=== PATIENT | male | born 1975 | race Caucasian/White ===

== ENCOUNTER 2024-09-07 10:27 | Emergency (ER) | payer MEDICARE, MEDICAID ==
[~2024-09-07] VITALS: Ht 180.3 cm; Wt 104.5 kg
--- NOTE | 2024-09-07 10:53 | ELECTROCARDIOGRAPH REPORT ---
[facility] Test Date: 2024-09-07 Test Time: 10:29:52 Pat Name: DOREEN CORDOVA Department: EMERGENCY ROOM Room: Gender: M Passenger Representative: KEVIN : 1975 Requested By: KAELYN DECKER Order Number: [id number] Reading MD: Measurements Intervals [place] Rate: 72 P: 39 ME: 152 QRS: 16 QRSD: 100 T: 59 QT: 376 QTc: 412 Interpretive Statements Sinus rhythm Please click the below link to view image of tracing.
[2024-09-07 11:15] LABS: BASOPHILS % (AUTO) 0.5 % (0-1); EOSINOPHILS # (AUTO) 0.1 X10'3 (0-0.9); EOSINOPHILS % (AUTO) 1.7 % (0-6); HEMATOCRIT 44.2 % (42.0-52.0); HEMOGLOBIN 14.7 g/dl (14.0-17.9); LYMPHOCYTES % (AUTO) 27.2 % (21-51); MEAN CORPUSCULAR HEMOGLOBIN 28.4 PG (27.0-31.0); MEAN CORPUSCULAR HGB CONC 33.2 g/dL (33.0-36.5); MEAN CORPUSCULAR VOLUME 85.3 FL (78-98); MEAN PLATELET VOLUME 9.4 FL (7.4-10.4); MONOCYTES # (AUTO) 0.7 X10'3 (0-0.9); MONOCYTES % (AUTO) 8.8 % (2-12); NEUTROPHILS # (AUTO) 4.6 X10'3 (1.8-7.7); NEUTROPHILS % (AUTO) 61.8 % (42-75); PLATELET COUNT 174 X10'3 (140-440); RED BLOOD COUNT 5.19 X10'6 (4.70-6.10); RED CELL DISTRIBUTION WIDTH 14.8 % (11.5-14.5); WHITE BLOOD COUNT 7.4 X10'3 (4.5-11.0)
[2024-09-07 11:26] VITALS: BP 124/87; PULSE 79; RESP 17; O2SAT 99
--- NOTE | 2024-09-07 11:36 | Physician Documentation ---
History of Present Illness ~ Chief Complaint: Chest Pain Stated Complaint: L ARM NUMBNESS/CP Time Seen by MD: 11:34 HPI 48-year-old male history of former tobacco use disorder, hyperlipidemia, chronic pain presenting for chest pain. About 1 hour prior to arrival he developed chest pain shortness of breath. His chest pain was substernal radiating to his left arm down his left arm and into his neck. And alleviated shortly after. He has had this happened to him multiple times in the past in the usually go away with rest. He has not seen a physician about this but does report being seen a few weeks [facility] where [facility] had cardiac ultrasound. Medication Reconciliation Allergies: Coded Allergies: No Known Allergies (Unverified , 09/07/24) Review of Systems Respiratory: Reports: shortness of breath Gastrointestinal: Denies: abdominal pain Physical Exam Vital Signs: RN Vital Signs have been reviewed: Yes, Temperature: 97.8, Source: Temporal, Heart Rate: 79, Respiratory Rate: 17, BP: 124/87, Pulse Oximetry: 99, Weight: 104.450 Oxygen Flow Rate: 0 General Appearance Well-appearing no distress resting comfortably in bed No JVD Moist mucous membranes Pulmonary clear to auscultation bilaterally Cardiac no murmur Abdomen is soft nontender Lower extremity no edema Awake alert oriented Progress Progress Note Patient does not want to stay in the ED to wait for his results. He did not even want to stay for his discharge paperwork. I was able to convince him to leave a repeat troponin. He agrees that he will call his primary care physician in the next 24 hours and that he will return if he has any reoccurrence of his symptoms. His reason for not staying is due to multiple children at home as well as his sick mother who was admitted to the hospital. I strongly encouraged him to stay in advised him that we have not even seen his 1st troponin and that his symptoms are concerning for acute coronary syndrome. He understands my concern and is agreeable to follow up. Results/Orders Results/Orders Orders - KAELYN DECKER MD Chest,Single View (09/07/24 10:52) Monitor (09/07/24 10:52) Saline Lock (09/07/24 10:52) Oxygen (09/07/24 10:52) Completed Orders - KAELYN DECKER MD Chest,Single View (09/07/24 10:52) Cbc/Diff (09/07/24 10:52) BMP (09/07/24 10:52) PBNP (09/07/24 10:52) Electrocardiogram (09/07/24 10:52) Hs Troponin I W Calculations (09/07/24 10:52) Hs Troponin I W Calculations (09/07/24 11:51) Vital Signs 09/07/24 09/07/24 09/07/24 09/07/24 10:42 11:21 11:26 11:56 Temp 97.8 97.8 97.8 Pulse 76 79 Resp 18 17 B/P (MAP) 165/117 124/87 (99) Pulse Ox 96 99 O2 Flow Rate 0 Laboratory Tests Test 09/07/24 10:33 09/07/24 11:51 White Blood Count 7.4 Red Blood Count 5.19 Hemoglobin 14.7 Hematocrit 44.2 Mean Corpuscular Volume 85.3 Mean Corpuscular Hemoglobin 28.4 Mean Corpuscular Hemoglobin Concent 33.2 Red Cell Distribution Width 14.8 H Platelet Count 174 Mean Platelet Volume 9.4 Neutrophils (%) (Auto) 61.8 Lymphocytes (%) (Auto) 27.2 Monocytes (%) (Auto) 8.8 Eosinophils (%) (Auto) 1.7 Basophils (%) (Auto) 0.5 Neutrophils # (Auto) 4.6 Lymphocytes # (Auto) 2.0 Monocytes # (Auto) 0.7 Eosinophils # (Auto) 0.1 Basophils # (Auto) 0.0 CBC Comment Sodium Level 142 Potassium Level 4.0 Chloride Level 106 Carbon Dioxide Level 27.3 Anion Gap 9 Blood Urea Nitrogen 16 Creatinine 0.88 Estimated GFR/1.73 m2 > 90 BUN/Creatinine Ratio 18.2 Glucose Level 98 Calcium Level 8.7 Troponin I High Sensitivity 5 5 Pro-B-Type Natriuretic Peptide 38 Albumin 3.9 Chemistry Comments Troponin I High Sens Percent Delta 0 Troponin I Hi Sens Absolute Change 0 EKG/XRAY/CT/US/VASC/MRI EKG : Additional Comment EKG independently interpreted by myself time 10:29 a.m. indication chest pain Normal sinus rhythm rate 72 normal axis normal intervals no ST or T-wave abnormalities Chest X-Ray : Additional Comments Chest x-ray independently interpreted by myse no cardiomegaly no pneumothorax normal cardiomediastinal silhouette Heart Score: Heart Score Response (Comments) Value History Moderate Suspicious 1 EKG Normal 0 Age 45-64 1 Risk Factors 1 or 2 risk factors 1 Troponin Normal limit 0 Total 3 Medical Decision Making Additional Information Acute coronary syndrome, pulmonary embolism, pneumonia Departure Disposition: LEFT AGAINST MEDICAL ADVICE Impression: Primary Impression: Chest pain Qualified Codes: R07.9 - Chest pain, unspecified Additional Impression Text Patient presents with moderate risk chest pain. He left before even his initial troponin was resulted. He would not stay for any discharge paperwork but I did personally discuss his risk of leaving against medical advice and advised him to follow up as soon as possible with his primary care physician for a cardiac stress test Referrals: NO PRIMARY CARE PROVIDER (PCP) Signature Scribe Signature: demetrio Attestation: KAELYN Wilkerson MD Sep 07, 2024 11:36
[2024-09-07 11:42] LABS: ALBUMIN 3.9 G/DL (3.4-5.0); ANION GAP 9 (8-16); BLOOD UREA NITROGEN 16 MG/DL (7-18); BUN/CREATININE RATIO 18.2 (10.0-20.0); CALCIUM 8.7 MG/DL (8.5-10.1); CHLORIDE 106 MMOL/L (99-107); CREATININE 0.88 MG/DL (0.60-1.10); GLUCOSE 98 MG/DL (70-104); PRO BRAIN NATRIURETIC PEPTIDE 38 PG/ML (0-125); SODIUM 142 MMOL/L (135-145); TOTAL CARBON DIOXIDE 27.3 MMOL/L (24-32); eCRCL 112 ML/MIN; eGFR > 90 ML/MIN
[2024-09-07 11:56] VITALS: TEMP 97.8
--- NOTE | 2024-09-07 12:59 | RADIOLOGY REPORT ---
CHEST RADIOGRAPH Indication: CP Technique: Single frontal view of the chest was obtained Comparison: None FINDINGS: The cardiac silhouette is enlarged. The lungs demonstrate perihilar airspace opacities. The pulmonary vasculature is prominent. There is no pleural effusion.. There is no pneumothorax. IMPRESSION: 1. Cardiomegaly with pulmonary vascular congestion and bilateral perihilar airspace opacities.
== END 2024-09-07 11:58 | disposition left against medical advice (07) ==
LOC: ER 10:28
DX: R07.2 Precordial pain (principal); E78.5 Hyperlipidemia, unspecified; Z87.891 Personal history of nicotine dependence
CPT/HCPCS: 36415; 71045; 80048; 83880; 84484; 85025; 93005; 99285